=== PATIENT | female | born 1975 | race Hispanic/Latino ===

== ENCOUNTER 2016-12-25 07:20 | Emergency (ER) | payer OTHER ==
[~2016-12-25] VITALS: Ht 154.9 cm; Wt 68.9 kg
[~2016-12-25 07:20] MED LIST: ASPIRIN81 M1 PO; BACTRIM DS TAB1 EACH PO; IBUPROFEN800 MG PO; PRILOSEC OTC20 M1 PO; URIBEL CAPSULE1 EACH PO; ZOFRAN4 M2 PO
--- NOTE | 2016-12-25 07:49 | ED GI/GU/ABDOMINAL COMPLAINT ---
History of Present Illness General Chief Complaint: Female Urogenital Problems Stated Complaint: ?UTI Source: patient, family Exam Limitations: language barrier (DAUGHTER TRANSLATING) Vital Signs & Intake/Output Vital Signs & Intake/Output Vital Signs Date Time Temp Pulse Resp B/P Pulse O2 O2 Flow FiO2 Ox Delivery Rate 12/25 0725 98.3 69 18 118/79 99 Room Air Allergies Coded Allergies: NO KNOWN ALLERGIES (01/14/12) Reconcile Medications Aspirin 81 MG TAB.CHEW 1 TAB PO DAILY VEIN IN BRAIN (Reported) Fluconazole (Diflucan) 150 MG TABLET 1 TAB PO ONCE YEAST Omeprazole Magnesium (Prilosec Otc) 20 MG TABLET.DR 1 TAB PO DAILY PUD Sulfamethoxazole/Trimethoprim (Bactrim Ds Tablet) 800 MG-160 MG TABLET 1 TAB PO BID UTI Triage Note: PT TO ED FOR BURNING ON URINATION SINCE LAST NIGHT, DENIES FEVER, NVD, BACK PAIN, FLANK PAIN, PELVIC PAIN Triage Nurses Notes Reviewed? yes ? n Is pt currently ? No Onset: Abrupt Duration: day(s): (2) Timing: multiple episodes today Quality/Severity: mild Location: suprapubic Radiation: no radiation Associated Symptoms: dysuria, urinary frequency HPI: This is a 41-year-old female presents to the chief complaint of sudden onset of dysuria last night. Denies any fever or chills. Denies any nausea or vomiting. History of UTI with similar symptoms 2 months ago which resolved after antibiotics. Denies chance of history of tubal ideation. No flank pain. Past History Travel History Traveled to [place] past 21 day No Medical History Any Pertinent Medical History? see below for history Neurological: CEREBRAL ANEURYSM EENT: NONE Cardiovascular: NONE Respiratory: NONE Gastrointestinal: NONE Hepatic: NONE Renal: KIDNEY PROBLEMS Musculoskeletal: NONE Psychiatric: NONE Endocrine: NONE Blood Disorders: NONE Cancer(s): NONE Surgical History Surgical History: CEREBRAL ANEURYSM Psychosocial History What is your primary language Maldivian Tobacco Use: Never used ETOH Use: denies use Illicit Drug Use: denies illicit drug use Family History Hx Contributory? No Review of Systems Review of Systems Constitutional: Denies: chills, fever. EENTM: Reports: no symptoms. Respiratory: Reports: no symptoms. Cardiovascular: Reports: no symptoms. GI: Reports: abdominal pain. Denies: nausea, vomiting. Genitourinary: Reports: dysuria, frequency. Denies: hematuria. Musculoskeletal: Reports: no symptoms. Skin: Reports: no symptoms. Neurological/Psychological: Reports: no symptoms. Hematologic/Endocrine: Reports: polyuria. Denies: bruising, bleeding, polydipsia. Immunologic/Allergic: Denies: splenectomy. All Other Systems: Reviewed and Negative Physical Exam Physical Exam General Appearance: well developed/nourished, alert, awake Head: atraumatic, normal appearance Eyes: Bilateral: normal appearance, PERRL, EOMI. Ears, Nose, Throat, Mouth: hearing grossly normal, moist mucous membrane Neck: normal inspection, supple, full range of motion Respiratory: normal breath sounds, chest non-tender, no respiratory distress Cardiovascular: regular rate/rhythm Peripheral Pulses: 2+ radial (R), 2+ radial (L) Gastrointestinal: normal bowel sounds, soft, tenderness (MINIMAL SUPRAPUBIC) Extremities: normal range of motion Neurologic/Psych: no motor/sensory deficits, awake, alert, oriented x 3 Core Measures ACS in differential dx? No Severe Sepsis Present: No Septic Shock Present: No Progress Differential Diagnosis: UTI/pyelo Plan of Care: Orders Procedure Date/time Status URINE 12/26 755 Complete CULTURE,URINE 12/25 725 Active URINALYSIS 12/25 725 Complete Current Medications Sig/Abhay Start time Last Medication Dose Stop Time Status Admin Trimethoprim/ 1 TAB ONCE ONE 12/25 829 UNVr Sulfamethoxazole 12/25 830 (Bactrim DS) Laboratory Tests 12/25/16757: Urine Test NEGATIVE 12/25/16 0758: Urine Color YEL, Urine Clarity HAZY H, Urine pH 6.0, Ur Specific [place] >= 1.030, Urine Protein 30 H, Urine Ketones NEG, Urine Nitrite NEG, Urine Bilirubin NEG, Urine Urobilinogen 0.2, Ur Leukocyte Esterase MOD H, Ur Microscopic SEDIMENT EXAMINED, Urine RBC 50-75 H, Urine WBC 25-50 H, Ur Epithelial Cells MANY H, Urine Bacteria MOD H, Micro UA Comment [place] YEAST H, Urine Hemoglobin LARGE H, Urine Glucose NEG Microbiology 12/25 757 URINE ROUT: Urine Culture - RECD Initial ED EKG: none Departure Departure Time of Disposition: 820 Disposition: HOME OR SELF CARE Condition: Stable Clinical Impression Primary Impression: UTI (urinary tract infection) Referrals: PATIENT HAS NO PRIMARY CARE DR (PCP/Family) Additional Instructions: TAKE THE BACTRIM AND DIFLUCAN DIRECTED. DRINK PLENTY OF FLUIDS. FOLLOW UP WITH YOUR DOCTOR IN THE OFFICE. RETURN TO THE ER FOR ANY CHANGING OR WORSENING SYMPTOMS. Departure Forms: Customer Survey General Discharge Information Prescriptions: Current Visit Scripts Sulfamethoxazole/Trimethoprim (Bactrim Ds Tablet) 1 TAB PO BID #10 TAB Fluconazole (Diflucan) 1 TAB PO ONCE #1 TAB
[2016-12-25] MEDS ORDERED: DIFLUCAN150 M1 PO (08:22)
[2016-12-25] MEDS ORDERED: BACTRIM DS TAB1 EACH PO (08:22)
[2016-12-25 08:31] VITALS: BP 120/80
== END 2016-12-25 08:32 ==
LOC: ERH 07:20
DX: N39.0 Urinary tract infection, site not specified (principal)
CPT/HCPCS: 81001; 81025; 87086